=== PATIENT | female | born 1950 | race Caucasian/White ===

== ENCOUNTER 2018-03-03 21:46 | Emergency (ER) | payer OTHER ==
[2018-03-03] MEDS ORDERED: CONTRAST GIVEN. MC (22:30)
[2018-03-03 22:36] LABS: BILIRUBIN,URINE SMALL (NEG); CLARITY,URINE CLEAR; COLOR,URINE AMBER; GLUCOSE,URINE NEGATIVE (NEG); NITRITE,URINE NEGATIVE (NEG); PH,URINE 5.5; PROTEIN,URINE 30 mg/dL (NEG-TRACE)
[2018-03-03 22:37] LABS: BASO % 0 % (0-3); EOS # 0.1 x10^3/uL (0.0-0.7); EOS % 0 % (0-3); HEMATOCRIT 43.7 % (36.0-47.0); HEMOGLOBIN 15.1 g/dL (12.0-15.5); LYMPH # 0.9 x10^3/uL (1.0-4.8); LYMPH % 6 % (24-48); MEAN CORPUSCULAR HEMOGLOBIN 32 pg (25-35); MEAN CORPUSCULAR HGB CONC 35 g/dL (31-37); MEAN CORPUSCULAR VOLUME 94 fL (79-100); MONO # 0.6 x10^3/uL (0.0-1.1); MONO % 4 % (0-9); NEUT # 11.9 x10^3uL (1.8-7.7); NEUT % 89 % (31-73); PLATELET COUNT 222 x10^3/uL (140-400); RED BLOOD COUNT 4.67 x10^6/uL (3.50-5.40); RED CELL DISTRIBUTION WIDTH 14.2 % (11.5-14.5); WHITE BLOOD COUNT 13.5 x10^3/uL (4.0-11.0)
[2018-03-03 22:44] LABS: ADD MAN DIFF? YES
[2018-03-03 22:47] LABS: BACTERIA,URINE 0 /HPF (0-FEW); RBC,URINE OCC /HPF (0-2); SQUAMOUS EPITHELIAL CELL,UR FEW /LPF; WBC,URINE OCC /HPF (0-4)
[2018-03-03 22:49] LABS: ANION GAP 11 (6-14); BLOOD UREA NITROGEN 21 mg/dL (7-20); CALCIUM 9.2 mg/dL (8.5-10.1); CARBON DIOXIDE 26 mmol/L (21-32); CHLORIDE 102 mmol/L (98-107); CREATININE 0.7 mg/dL (0.6-1.0); GLUCOSE 125 mg/dL (70-99); POTASSIUM 3.6 mmol/L (3.5-5.1); SODIUM 139 mmol/L (136-145)
[2018-03-03 22:55] LABS: ALBUMIN 3.9 g/dL (3.4-5.0); ALK PHOS 88 U/L (46-116); ALT (SGPT) 24 U/L (14-59); AST (SGOT) 20 U/L (15-37); DIRECT BILIRUBIN 0.2 mg/dL (0.0-0.2); LIPASE 91 U/L (73-393); TOTAL BILIRUBIN 0.7 mg/dL (0.2-1.0); TOTAL PROTEIN 7.8 g/dL (6.4-8.2)
[2018-03-03] MEDS: IOHEXOL 300 MG/ML 100ML VIAL. IV (23:11)
[2018-03-03] MEDS: IV NORMAL SALINE 1000ML BAG 1,000 ML IV (23:47)
[2018-03-03] MEDS: ONDANSETRON PF 4 MG/2 ML VIAL. IV (23:47)
[2018-03-04] MEDS: ONDANSETRON PF 4 MG/2 ML VIAL. IV (01:01)
[2018-03-04] MEDS: CIPROFLOXACIN 400MG PREMIX 200 ML IV (01:25)
[2018-03-04] MEDS: MORPHINE SULFATE 4 MG/ML DISP.SYRIN. IV (02:21)
[2018-03-04 03:52] LABS: % BANDS 2 % (0-9); % EOS 1 % (0-5); % LYMPHS 5 % (24-48); % MONOS 3 % (0-10); % SEGS 89 % (35-66); PLT ESTIMATE ADEQUATE (ADEQUATE)
== END 2018-03-04 02:40 | disposition home or self-care (01) ==
LOC: ER 03-04 02:40
DX: K52.9 Noninfective gastroenteritis and colitis, unspecified (principal); K21.9 Gastro-esophageal reflux disease without esophagitis; E78.00 Pure hypercholesterolemia, unspecified; I10 Essential (primary) hypertension; E03.9 Hypothyroidism, unspecified; Z88.5 Allergy status to narcotic agent
CPT/HCPCS: 36415; 74177; 80048; 80076; 81001; 83690; 85007; 85025; 96361; 96365; 96368; 96375; 96376; 99285-25; J0744; J2270; J2405; J3490; J7030; Q9967